=== PATIENT | female | born 1935 | race Caucasian/White ===

== ENCOUNTER → 2017-03-05 | Outpatient (CLI) | payer OTHER ==
--- NOTE | ~2017-03-05 | MY29 ---
[facility] A Service of [facility] & [facility] RADIOLOGY TEXT RESULTS PATIENT: ADDIE ZIEGLER LOCATION: [facility] : 31 UNIT #: [id number] AGE: [address]: Souleymane Malone MD SEX: F ORDER DR: [id number] [facility] [address] [place], [place] [address] [id number] O MR#: [id number] Acc #: [id number] NAME: ADDIE ZIEGLER : 1935 SEX: F STUDY DATE/TIME: 03/05/2017 9:37 UNIT: [facility] ROOM: STUDY DESCRIPTION: [facility] SCREENING W/ CAD BILAT Attending Physician: Souleymane Malone M.D. Referring Physician: Souleymane Malone M.D. Ordering Physician: Souleymane Malone M.D. Primary Care Physician: Souleymane Malone M.D. MEDICAL IMAGING REPORT This report is preliminary unless electronic signature is present EXAM Bilateral digital screening mammogram with CAD 03/05/2017 INDICATIONS 82-year-old female for routine screening. No reported problems no personal or family history of breast cancer. No surgeries. TECHNIQUE CC and MLO views of the breast were obtained and reviewed with an FDA-approved CAD device COMPARISON 02/28/2016 11/09/2014 05/12/2013 FINDINGS Breast parenchyma is composed of scattered fibroglandular densities. The pattern is unchanged. There is no new dominant nodule or mass in either breast. No new suspicious clustered microcalcifications. There are benign calcifications present. There is motion degradation on the MLO projection of the left breast. There is an asymmetric density deep to the left nipple that appears more conspicuous than on prior studies probably exaggerated by motion. Suggest a repeat full field, MLO view of the left breast and spot compression in the MLO projection for further assessment. Due to the motion degradation this should be performed at no additional charge to the patient. IMPRESSION 1. Motion degraded MLO projection on the left. Additional views recommended as described above at no additional charge. Patients over the age of 40 are entered into a reminder system with target due date for the next mammogram. A result letter will also be sent to the [facility] A Service of [facility] & [facility] RADIOLOGY TEXT RESULTS PATIENT: ADDIE ZIEGLER [id number] 31 UNIT #: [id number] AGE: [address]: Souleymane Malone MD SEX: F ORDER DR: patient. BIRADS: 0. Incomplete; Need additional imaging evaluation and/or prior mammograms for comparison. Dictated by... Kyaw Frye M.D. THIS IS AN ELECTRONICALLY VERIFIED REPORT Kyaw Frye M.D. at 03/05/2017 5:24 PM LUCIO/aristides TD: 03/05/2017 14:53 JOB #: [id number] MEDICAL IMAGING REPORT Page 1 of 1 COPY
== END | disposition home or self-care (01) ==
LOC: CWCC 09:02
DX: Z12.31 Encounter for screening mammogram for malignant neoplasm of breast (principal)
CPT/HCPCS: G0202